=== PATIENT | female | born 1975 | race Caucasian/White ===

== ENCOUNTER 2024-10-19 10:00 | Observation (INO) | payer OTHER ==
[2024-10-19 10:06] VITALS: BMI 20.2
[2024-10-19] MEDS: SODIUM CHLORIDE 1,000 ML IV STA (10:30)
[2024-10-19 10:45] LABS: ABSOLUTE IMMATURE GRANULOCYTES 0.01 x10^3/uL (0.0-0.031); BASOPHILS # 0.04 x10^3/uL (0.01-0.08); EOSINOPHIL % 1.2 % (0.7-5.8); EOSINOPHILS # 0.06 x10^3/uL (0.04-0.36); HEMATOCRIT 42.4 % (34.1-44.9); HEMOGLOBIN 13.8 g/dL (11.2-15.7); MCHC 32.5 g/dl (32.2-35.5); MEAN CELL VOLUME 92.8 fl (79.4-94.8); MEAN PLT VOLUME 10.4 fl (9.4-12.3); MONOCYTE # 0.69 x10^3/uL (0.24-0.86); MONOCYTE % 13.5 % (4.7-12.5); PLATELET COUNT 306 x10^3/uL (182-369); RDW 13.4 % (12.2-17.1)
[2024-10-19 10:55] LABS: INR 0.91 (0.83-1.09); PROTHROMBIN TIME (PATIENT) 10.1 SEC (9.7-13.0)
[2024-10-19 10:57] LABS: ACTIVATED PTT 28.4 SECONDS (25.2-36.5)
[2024-10-19 11:11] LABS: ALBUMIN 4.4 g/dl (3.4-5.0); BILIRUBIN,TOTAL 0.7 mg/dl (0.2-1); CALCIUM 9.7 mg/dl (8.5-10.1); CREATININE 0.7 mg/dl (0.6-1.3); MAGNESIUM 1.8 mg/dL (1.8-2.4); POTASSIUM 3.7 mmol/L (3.5-5.1); TOT PROT 6.9 g/dl (6.4-8.2)
[2024-10-19] MEDS ORDERED: ASPIRIN 81 MG CHEWABLE TABLETS ONE (11:56)
[2024-10-19] MEDS: ASPIRIN 81 MG CHEWABLE TABLETS PO ONE (12:01)
[2024-10-19 13:06] LABS: HCV DIAGNOSTIC IN-HOUSE W/RFLX NON-REACTIVE (NONREACTIVE); HIV INTERPRETATION NEGATIVE (NEGATIVE)
[2024-10-19] MEDS: LACTATED RINGERS SOLUTION 1,000 ML/1,000 ML INFUS.BAG IV SCH (13:37)
[2024-10-19 22:32] VITALS: RESP 18
[2024-10-20] MEDS: ACETAMINOPHEN 325 MG TABLET (FP) PO ONE (07:18)
[2024-10-20 07:43] LABS: BASOPHILS # 0.05 x10^3/uL (0.01-0.08); EOSINOPHIL % 1.5 % (0.7-5.8); EOSINOPHILS # 0.06 x10^3/uL (0.04-0.36); HEMOGLOBIN 12.3 g/dL (11.2-15.7); MCHC 32.4 g/dl (32.2-35.5); MEAN CELL VOLUME 93.4 fl (79.4-94.8); MEAN PLT VOLUME 10.7 fl (9.4-12.3); MONOCYTE # 0.53 x10^3/uL (0.24-0.86); MONOCYTE % 13.1 % (4.7-12.5); PLATELET COUNT 271 x10^3/uL (182-369); RDW 13.7 % (12.2-17.1)
[2024-10-20 08:02] LABS: CALCIUM 9.4 mg/dl (8.5-10.1); CREATININE 0.7 mg/dl (0.6-1.3); POTASSIUM 4.6 mmol/L (3.5-5.1)
[2024-10-20 08:04] LABS: CHOLESTEROL 171 mg/dL (50-200); HDL CHOLESTEROL 81 mg/dL (40-60); LDL CHOLESTEROL (ONLY DFH) 78 mg/dL (5-100)
[2024-10-20] MEDS: ASPIRIN COATED 81 MG TABLET.EC PO SCH (09:46)
[2024-10-20 14:06] VITALS: BP 126/73; PULSE 72; TEMP 98.4
[2024-10-20 15:28] LABS: COCAINE, UR NEGATIVE (NEGATIVE); URINE BARBITURATES NEGATIVE (NEGATIVE)
[2024-10-20 15:29] LABS: METHADONE, UR NEGATIVE (NEGATIVE); PHENCYCLIDINE,URINE NEGATIVE (NEGATIVE)
[2024-10-20 15:30] LABS: OPIATES, URI NEGATIVE (NEGATIVE); URINE AMPHETAMINES NEGATIVE (NEGATIVE); URINE BENZODIAZEPINES NEGATIVE (NEGATIVE)
== END 2024-10-20 17:02 | disposition left against medical advice (07) ==
LOC: FER 10:00 → FM/S 12:17
PROVIDERS: ADMIT Internal Medicine
PROC: 3E0337Z Introduction of Electrolytic and Water Balance Substance into Peripheral Vein, Percutaneous Approach (ICD-10-PCS; principal; 2024-10-19)
DX: R79.89 Other specified abnormal findings of blood chemistry (principal); R00.0 Tachycardia, unspecified; E86.0 Dehydration; R77.8 Other specified abnormalities of plasma proteins; K51.90 Ulcerative colitis, unspecified, without complications; F41.9 Anxiety disorder, unspecified
CPT/HCPCS: 36415; 80048; 80053; 80061; 80307; 81003; 82550; 83735; 84100; 84439; 84443; 84484; 84703; 85025; 85610; 85730; 86803; 86850; 86900; 86901; 87389; 93005; 93306-TC; 99285-25; G0378